=== PATIENT | female | born 2005 | race Caucasian/White ===

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

== ENCOUNTER 2025-06-20 12:52 | Outpatient (CLI) | payer OTHER | END 2025-06-20 12:53 | disposition home or self-care (01) | LOC: MADRAD 12:52 | PROVIDERS: ATTEND Pediatrics | DX: R10.9 Unspecified abdominal pain (principal); R14.0 Abdominal distension (gaseous) | CPT/HCPCS: 74018 ==